=== PATIENT | male | born 1945 | race Caucasian/White ===

== ENCOUNTER → 2020-07-09 | Day surgery (SDC) | payer MEDICARE, OTHER ==
[~2020-07-09] VITALS: Ht 182.9 cm; Wt 145.1 kg
[~2020-07-09] MED LIST: ALLOPURINOL100 MG PO; AMOXICILLIN500 M1 PO; AMOXICILLIN500 MG PO; BENTYL10 MG PO; COMPAZINE10 MG PO; DEXAMETHASONE 2M2 MG PO; ELIQUIS2.5 MG PO; GLYBURIDE 5MG TA5 MG PO; HYDROCODON-ACE1 EAC4 PO; LEXAPRO 10MG TA10 MG PO; LISINOPRIL2.5 MG PO; LOPRESSOR25 MG PO; METRONIDAZOLE500 MG PO; NORCO 5-325 TA1 EACH PO; NORVASC 10MG TA10 MG PO; NORVASC10 MG PO; ONDANSETRON ODT4 MG PO; ONDANSETRON ODT8 MG PO; PEPCID AC10 MG PO; PERCOCET 5-3251 EACH PO; PRILOSEC20 MG PO; PROTONIX 40MG T40 MG PO; TOPROL XL 25MG25 MG PO; ZESTRIL2.5 MG PO; ZOFRAN4 M1 PO
[2020-07-09 09:05] LABS: HCT 44.7 % (42.0-52.0); HGB 14.9 g/dl (13.2-18.0); MCH 30.7 pg (25.0-31.0); MCHC 33.3 g/dL (32.0-36.0); MCV 92.2 fL (78.0-100.0); MPV 11.1 fL (6.0-9.5); RBC 4.85 M/uL (4.70-6.00); RDW 12.8 % (11.5-14.0); WBC 5.8 K/uL (4.0-10.5)
[2020-07-09 09:30] LABS: ALBUMIN 3.9 g/dL (3.4-5.0); BILIRUBIN - TOTAL 0.7 mg/dL (0.2-1.0); BUN/CREAT RATIO (CALC) 12.1 RATIO; CREATININE 1.41 mg/dL (0.67-1.17); GLOBULIN (CALCULATION) 3.3 g/dL; POTASSIUM 4.4 mmol/L (3.5-5.1); TOTAL PROTEIN 7.2 g/dL (6.4-8.2)
== END | disposition home or self-care (01) ==
LOC: FAS 08:29
PROVIDERS: Surgery
DX: I87.2 Venous insufficiency (chronic) (peripheral) (principal); I35.1 Nonrheumatic aortic (valve) insufficiency; C34.90 Malignant neoplasm of unspecified part of unspecified bronchus or lung; I10 Essential (primary) hypertension; I73.9 Peripheral vascular disease, unspecified; G47.30 Sleep apnea, unspecified; K21.9 Gastro-esophageal reflux disease without esophagitis; E11.9 Type 2 diabetes mellitus without complications; Z98.49 Cataract extraction status, unspecified eye; Z88.2 Allergy status to sulfonamides; Z86.010 Personal history of colon polyps; Z87.39 Personal history of other diseases of the musculoskeletal system and connective tissue; Z90.49 Acquired absence of other specified parts of digestive tract; Z98.890 Other specified postprocedural states; Z90.5 Acquired absence of kidney; Z20.822 Contact with and (suspected) exposure to COVID-19
CPT/HCPCS: 36415; 71045; 76000; 77001; 80053; 82962; C1788; J0690; J1644; J2405; J2704; J3010; J7120

== ENCOUNTER 2020-08-20 11:06 | Emergency (ER) | payer MEDICARE, OTHER ==
[~2020-08-20 11:06] MED LIST changes: -AMOXICILLIN500 M1 PO; -AMOXICILLIN500 MG PO; -BENTYL10 MG PO; -COMPAZINE10 MG PO; -DEXAMETHASONE 2M2 MG PO; -ELIQUIS2.5 MG PO; -LEXAPRO 10MG TA10 MG PO; -METRONIDAZOLE500 MG PO; -NORVASC10 MG PO; -ONDANSETRON ODT4 MG PO; -PEPCID AC10 MG PO; -PRILOSEC20 MG PO; -PROTONIX 40MG T40 MG PO; -ZESTRIL2.5 MG PO; -ZOFRAN4 M1 PO
[2020-08-20 11:56] LABS: BASOPHIL 0.7 % (0-2); EOSINOPHIL 0.3 % (0-7); HCT 36.9 % (42.0-52.0); HGB 12.6 g/dl (13.2-18.0); LYMPHOCYTE 30.2 % (15-48); MCH 32.1 pg (25.0-31.0); MCHC 34.1 g/dL (32.0-36.0); MCV 94.1 fL (78.0-100.0); NEUTROPHIL 60.1 % (41-80); NRBC 0; PLT 153 K/uL (150-400); RBC 3.92 M/uL (4.70-6.00); RDW 14.3 % (11.5-14.0)
[2020-08-20 12:13] LABS: INR 1.15 (0.9-1.2); PTT 28.7 SECONDS (22.2-34.7)
[2020-08-20 12:23] LABS: ALBUMIN 3.6 g/dL (3.4-5.0); BILIRUBIN - TOTAL 0.9 mg/dL (0.2-1.0); BUN/CREAT RATIO (CALC) 12.7 RATIO; CREATININE 1.5 mg/dL (0.67-1.17); GLOBULIN (CALCULATION) 2.5 g/dL; POTASSIUM 4.4 mmol/L (3.5-5.1); TOTAL PROTEIN 6.1 g/dL (6.4-8.2)
[2020-08-20 12:28] LABS: D-DIMER 13.52 ug/mLFEU (0.00-0.41)
[2020-08-20 12:35] LABS: PRO-BNP 149 pg/mL (<125)
[2020-08-20 12:48] LABS: LACTIC ACID 2.1 mmol/L (0.4-1.9)
[2020-10-30] MEDS ORDERED: LOPRESSOR25 MG PO (13:02)
[2020-10-30] MEDS ORDERED: PROTONIX 40MG T40 MG PO (13:03)
[2020-10-30] MEDS ORDERED: PEPCID AC10 MG PO (13:05)
[2020-10-30] MEDS ORDERED: PRILOSEC20 MG PO (13:06)
== END 2020-08-20 15:15 | disposition other institution (70) ==
LOC: FER 11:06
PROVIDERS: Emergency Medicine
DX: J96.01 Acute respiratory failure with hypoxia (principal); E11.22 Type 2 diabetes mellitus with diabetic chronic kidney disease; I12.9 Hypertensive chronic kidney disease with stage 1 through stage 4 chronic kidney disease, or unspecified chronic kidney disease; N18.30 Chronic kidney disease, stage 3 unspecified; I45.2 Bifascicular block; G47.33 Obstructive sleep apnea (adult) (pediatric); E66.9 Obesity, unspecified; Z99.89 Dependence on other enabling machines and devices; Z88.2 Allergy status to sulfonamides; Z91.041 Radiographic dye allergy status; Z79.899 Other long term (current) drug therapy; Z86.79 Personal history of other diseases of the circulatory system; Z87.19 Personal history of other diseases of the digestive system; Z20.822 Contact with and (suspected) exposure to COVID-19
CPT/HCPCS: 36415; 36600; 71045; 80053; 82803; 83605; 83880; 84484; 85025; 85379; 85610; 85730; 87040; 94640; 94664; 94762; J1650; U0002

== ENCOUNTER 2020-09-08 05:22 | Emergency (ER) | payer MEDICARE, OTHER ==
[2020-09-08 05:54] LABS: BASOPHIL 0.4 % (0-2); EOSINOPHIL 0.7 % (0-7); HCT 38.8 % (42.0-52.0); HGB 13.3 g/dl (13.2-18.0); LYMPHOCYTE 16.5 % (15-48); MCH 32.7 pg (25.0-31.0); MCHC 34.3 g/dL (32.0-36.0); MCV 95.3 fL (78.0-100.0); MPV 10.3 fL (6.0-9.5); NEUTROPHIL 76.2 % (41-80); NRBC 0; PLT 149 K/uL (150-400); RBC 4.07 M/uL (4.70-6.00); RDW 15.4 % (11.5-14.0); WBC 5.5 K/uL (4.0-10.5)
[2020-09-08 06:14] LABS: ALBUMIN 3.8 g/dL (3.4-5.0); BILIRUBIN - TOTAL 1.3 mg/dL (0.2-1.0); BUN/CREAT RATIO (CALC) 14.9 RATIO; CREATININE 1.34 mg/dL (0.67-1.17); GLOBULIN (CALCULATION) 2.5 g/dL; POTASSIUM 4.3 mmol/L (3.5-5.1); TOTAL PROTEIN 6.3 g/dL (6.4-8.2)
[2020-09-08 06:17] LABS: LACTIC ACID 1.5 mmol/L (0.4-1.9)
[2020-09-08 07:46] LABS: BILIRUBIN NEGATIVE (NEGATIVE); BLOOD NEGATIVE Ery/uL (NEGATIVE); CLARITY CLEAR (CLEAR); COLOR YELLOW (YELLOW); GLUCOSE (U) NORMAL (NORMAL); LEUKOCYTES NEGATIVE Leu/uL (NEGATIVE); NITRITE NEGATIVE (NEGATIVE); PROTEIN NEGATIVE (NEGATIVE); SPECIFIC GRAVITY 1.025 (1.001-1.030); UROBILINOGEN 0.2 mg/dL (0.2-1.0)
[2020-09-08] MEDS ORDERED: PROTONIX 40MG T40 MG PO (08:44)
[2020-09-08] MEDS ORDERED: METRONIDAZOLE500 MG PO (08:44)
[2020-09-08] MEDS ORDERED: AMOXICILLIN500 M1 PO (08:44)
[2020-09-08] MEDS ORDERED: ZOFRAN4 M1 PO (08:56)
[2020-09-09] MEDS ORDERED: ZESTRIL2.5 MG PO (11:35)
[2020-09-09] MEDS ORDERED: NORVASC10 MG PO (11:37)
[2020-09-09] MEDS ORDERED: NORCO 5-325 TA1 EACH PO (11:39)
[2020-09-09] MEDS ORDERED: LOPRESSOR25 MG PO (11:40)
[2020-09-09] MEDS ORDERED: ALLOPURINOL100 MG PO (11:41)
[2020-09-09] MEDS ORDERED: GLYBURIDE 5MG TA5 MG PO (11:42)
[2020-09-09] MEDS ORDERED: METRONIDAZOLE500 MG PO (11:43)
[2020-09-09] MEDS ORDERED: PROTONIX 40MG T40 MG PO (11:44)
[2020-09-09] MEDS ORDERED: AMOXICILLIN500 MG PO (11:44)
[2020-09-09] MEDS ORDERED: DEXAMETHASONE 2M2 MG PO (11:46)
[2020-09-09] MEDS ORDERED: COMPAZINE10 MG PO (11:47)
[2020-09-09] MEDS ORDERED: ONDANSETRON ODT8 MG PO (11:48)
[2020-10-30] MEDS ORDERED: LOPRESSOR25 MG PO (13:02)
[2020-10-30] MEDS ORDERED: PROTONIX 40MG T40 MG PO (13:03)
[2020-10-30] MEDS ORDERED: PEPCID AC10 MG PO (13:05)
[2020-10-30] MEDS ORDERED: PRILOSEC20 MG PO (13:06)
== END 2020-09-08 09:30 | disposition home or self-care (01) ==
LOC: FER 05:22
PROVIDERS: Emergency Medicine Emergency Medical Services
DX: A04.8 Other specified bacterial intestinal infections (principal); N28.1 Cyst of kidney, acquired; I45.10 Unspecified right bundle-branch block; I12.9 Hypertensive chronic kidney disease with stage 1 through stage 4 chronic kidney disease, or unspecified chronic kidney disease; E11.22 Type 2 diabetes mellitus with diabetic chronic kidney disease; N18.30 Chronic kidney disease, stage 3 unspecified; K21.9 Gastro-esophageal reflux disease without esophagitis; D50.9 Iron deficiency anemia, unspecified; Z90.49 Acquired absence of other specified parts of digestive tract; Z79.01 Long term (current) use of anticoagulants; Z88.2 Allergy status to sulfonamides; Z91.041 Radiographic dye allergy status; Z85.118 Personal history of other malignant neoplasm of bronchus and lung; Z92.21 Personal history of antineoplastic chemotherapy; Z92.3 Personal history of irradiation; Z86.711 Personal history of pulmonary embolism
CPT/HCPCS: 36415; 80053; 81003; 82150; 83605; 83690; 84145; 84484; 85025; 87339; 93005; J2270; J2405; J7040

== ENCOUNTER 2020-09-09 03:45 | Day surgery (SDCO) | payer MEDICARE, OTHER ==
[~2020-09-09 03:45] MED LIST changes: +AMOXICILLIN500 M1 PO; +METRONIDAZOLE500 MG PO; +PROTONIX 40MG T40 MG PO; +ZOFRAN4 M1 PO
[2020-09-09 04:32] LABS: BASOPHIL 0.5 % (0-2); HCT 37.8 % (42.0-52.0); HGB 12.8 g/dl (13.2-18.0); LYMPHOCYTE 15.4 % (15-48); MCH 32.4 pg (25.0-31.0); MCHC 33.9 g/dL (32.0-36.0); MCV 95.7 fL (78.0-100.0); MONOCYTE 4.1 % (0-12); MPV 10.3 fL (6.0-9.5); NEUTROPHIL 78.8 % (41-80); NRBC 0; PLT 124 K/uL (150-400); RBC 3.95 M/uL (4.70-6.00); RDW 15.2 % (11.5-14.0); WBC 4.2 K/uL (4.0-10.5)
[2020-09-09 04:46] LABS: ALBUMIN 3.6 g/dL (3.4-5.0); BILIRUBIN - TOTAL 1.1 mg/dL (0.2-1.0); BUN/CREAT RATIO (CALC) 14.9 RATIO; CREATININE 1.34 mg/dL (0.67-1.17); GLOBULIN (CALCULATION) 2.6 g/dL; POTASSIUM 4.2 mmol/L (3.5-5.1); TOTAL PROTEIN 6.2 g/dL (6.4-8.2)
[2020-09-09 08:43] LABS: CORONAVIRUS 2019 SARS-COV-2 NEGATIVE (NEGATIVE)
[2020-09-09 09:23] LABS: INFLUENZA A NAA NEGATIVE (NEGATIVE)
[2020-09-09] MEDS ORDERED: ZESTRIL2.5 MG PO (11:35)
[2020-09-09] MEDS ORDERED: NORVASC10 MG PO (11:37)
[2020-09-09] MEDS ORDERED: NORCO 5-325 TA1 EACH PO (11:39)
[2020-09-09] MEDS ORDERED: LOPRESSOR25 MG PO (11:40)
[2020-09-09] MEDS ORDERED: ALLOPURINOL100 MG PO (11:41)
[2020-09-09] MEDS ORDERED: GLYBURIDE 5MG TA5 MG PO (11:42)
[2020-09-09] MEDS ORDERED: METRONIDAZOLE500 MG PO (11:43)
[2020-09-09] MEDS ORDERED: PROTONIX 40MG T40 MG PO (11:44)
[2020-09-09] MEDS ORDERED: AMOXICILLIN500 MG PO (11:44)
[2020-09-09] MEDS ORDERED: DEXAMETHASONE 2M2 MG PO (11:46)
[2020-09-09] MEDS ORDERED: COMPAZINE10 MG PO (11:47)
[2020-09-09] MEDS ORDERED: ONDANSETRON ODT8 MG PO (11:48)
--- NOTE | 2020-09-09 14:04 | NUR ---
09/09/20 Mr. Cartwright reports to have been independent in the home and community prior to admission. His sister who was a support system has now past away. He reports to have a few supportive friends. - Mr. Cartwright was confused re: administration of medications. He reports to now understand how to take his medications. He was advised to use a medi-automatic data processing planner and to talk to the Pharmacist should he have additional questions.
[2020-10-30] MEDS ORDERED: LOPRESSOR25 MG PO (13:02)
[2020-10-30] MEDS ORDERED: PROTONIX 40MG T40 MG PO (13:03)
[2020-10-30] MEDS ORDERED: PEPCID AC10 MG PO (13:05)
[2020-10-30] MEDS ORDERED: PRILOSEC20 MG PO (13:06)
== END 2020-09-09 14:05 | disposition home or self-care (01) ==
LOC: FER 03:45 → FTCU 06:42
PROVIDERS: Emergency Medicine Emergency Medical Services; ADMIT Internal Medicine
DX: K27.9 Peptic ulcer, site unspecified, unspecified as acute or chronic, without hemorrhage or perforation (principal); B96.81 Helicobacter pylori [H. pylori] as the cause of diseases classified elsewhere; I12.9 Hypertensive chronic kidney disease with stage 1 through stage 4 chronic kidney disease, or unspecified chronic kidney disease; E11.22 Type 2 diabetes mellitus with diabetic chronic kidney disease; I26.99 Other pulmonary embolism without acute cor pulmonale; N18.30 Chronic kidney disease, stage 3 unspecified; R59.9 Enlarged lymph nodes, unspecified; Z85.528 Personal history of other malignant neoplasm of kidney; Z85.118 Personal history of other malignant neoplasm of bronchus and lung; Z20.822 Contact with and (suspected) exposure to COVID-19; Z79.84 Long term (current) use of oral hypoglycemic drugs; Z79.899 Other long term (current) drug therapy
CPT/HCPCS: 36415; 80053; 82150; 83605; 83690; 84145; 84484; 85025; C9113; G0378; J1170; J1980; J2060; J2405; J7030; Q0164; U0002

== ENCOUNTER 2020-09-22 16:45 | Emergency (ER) | payer MEDICARE, OTHER ==
[~2020-09-22 16:45] MED LIST changes: +AMOXICILLIN500 MG PO; +COMPAZINE10 MG PO; +DEXAMETHASONE 2M2 MG PO; +NORVASC10 MG PO; +ZESTRIL2.5 MG PO
[2020-09-22 19:26] LABS: BASOPHIL 0.8 % (0-2); EOSINOPHIL 0.4 % (0-7); HCT 34.3 % (42.0-52.0); HGB 11.6 g/dl (13.2-18.0); LYMPHOCYTE 34.3 % (15-48); MCHC 33.8 g/dL (32.0-36.0); MCV 97.7 fL (78.0-100.0); MONOCYTE 6.9 % (0-12); NEUTROPHIL 57.2 % (41-80); NRBC 0; PLT 92 K/uL (150-400); RBC 3.51 M/uL (4.70-6.00); RDW 14.7 % (11.5-14.0); WBC 2.5 K/uL (4.0-10.5)
[2020-09-22 19:37] LABS: BILIRUBIN NEGATIVE (NEGATIVE); BLOOD TRACE-INTACT Ery/uL (NEGATIVE); CLARITY CLEAR (CLEAR); COLOR YELLOW (YELLOW); GLUCOSE (U) NORMAL (NORMAL); LEUKOCYTES NEGATIVE Leu/uL (NEGATIVE); NITRITE NEGATIVE (NEGATIVE); PROTEIN TRACE (LOW) mg/dL (NEGATIVE); SPECIFIC GRAVITY 1.025 (1.001-1.030); UROBILINOGEN 0.2 mg/dL (0.2-1.0)
[2020-09-22 19:41] LABS: ALBUMIN 3.4 g/dL (3.4-5.0); BILIRUBIN - TOTAL 0.7 mg/dL (0.2-1.0); BUN/CREAT RATIO (CALC) 14.5 RATIO; CREATININE 1.24 mg/dL (0.67-1.17); GLOBULIN (CALCULATION) 2.7 g/dL; POTASSIUM 4.4 mmol/L (3.5-5.1); TOTAL PROTEIN 6.1 g/dL (6.4-8.2)
[2020-09-22 19:44] LABS: URINARY RBC RARE
[2020-09-22] MEDS ORDERED: ONDANSETRON ODT4 MG PO (23:01)
[2020-10-30] MEDS ORDERED: LOPRESSOR25 MG PO (13:02)
[2020-10-30] MEDS ORDERED: PROTONIX 40MG T40 MG PO (13:03)
[2020-10-30] MEDS ORDERED: PEPCID AC10 MG PO (13:05)
[2020-10-30] MEDS ORDERED: PRILOSEC20 MG PO (13:06)
== END 2020-09-22 23:08 | disposition home or self-care (01) ==
LOC: FER 16:45
PROVIDERS: Emergency Medicine
DX: K21.9 Gastro-esophageal reflux disease without esophagitis (principal); R10.9 Unspecified abdominal pain; R11.0 Nausea; R63.0 Anorexia; C64.9 Malignant neoplasm of unspecified kidney, except renal pelvis; C96.9 Malignant neoplasm of lymphoid, hematopoietic and related tissue, unspecified; Z88.2 Allergy status to sulfonamides; Z79.01 Long term (current) use of anticoagulants; Z79.899 Other long term (current) drug therapy; Z86.711 Personal history of pulmonary embolism
CPT/HCPCS: 36415; 74019; 80053; 81001; 82150; 83690; 85025; 87339; J1642; J2405; J7040

== ENCOUNTER 2020-09-28 21:01 | Emergency (ER) | payer MEDICARE, OTHER ==
[~2020-09-28 21:01] MED LIST changes: +ONDANSETRON ODT4 MG PO
[2020-09-28 23:40] LABS: BASOPHIL 0.3 % (0-2); EOSINOPHIL 0.3 % (0-7); HCT 36.3 % (42.0-52.0); HGB 12.3 g/dl (13.2-18.0); LYMPHOCYTE 21.8 % (15-48); MCH 33.3 pg (25.0-31.0); MCHC 33.9 g/dL (32.0-36.0); MCV 98.4 fL (78.0-100.0); MONOCYTE 3.4 % (0-12); MPV 10.5 fL (6.0-9.5); NEUTROPHIL 73.9 % (41-80); NRBC 0; RBC 3.69 M/uL (4.70-6.00); RDW 14.7 % (11.5-14.0); WBC 3.2 K/uL (4.0-10.5)
[2020-09-28 23:42] LABS: PLT 87 K/uL (150-400)
[2020-09-29 00:25] LABS: ALBUMIN 3.6 g/dL (3.4-5.0); BUN/CREAT RATIO (CALC) 13.3 RATIO; CREATININE 1.28 mg/dL (0.67-1.17); GLOBULIN (CALCULATION) 3.3 g/dL; POTASSIUM 6.4 mmol/L (3.5-5.1); TOTAL PROTEIN 6.9 g/dL (6.4-8.2)
[2020-09-29 01:02] LABS: BILIRUBIN NEGATIVE (NEGATIVE); BLOOD TRACE-INTACT Ery/uL (NEGATIVE); CLARITY CLEAR (CLEAR); COLOR YELLOW (YELLOW); GLUCOSE (U) NORMAL (NORMAL); LEUKOCYTES NEGATIVE Leu/uL (NEGATIVE); NITRITE NEGATIVE (NEGATIVE); PROTEIN TRACE (LOW) mg/dL (NEGATIVE); SPECIFIC GRAVITY >=1.030 (1.001-1.030); UROBILINOGEN 0.2 mg/dL (0.2-1.0); pH 5.5 (5.0-9.0)
[2020-09-29 01:13] LABS: URINARY RBC RARE; URINARY WBC RARE
[2020-09-29 04:48] LABS: BUN/CREAT RATIO (CALC) 13.1 RATIO; CREATININE 1.3 mg/dL (0.67-1.17)
[2020-09-29 04:49] LABS: POTASSIUM 4.6 mmol/L (3.5-5.1)
[2020-10-30] MEDS ORDERED: LOPRESSOR25 MG PO (13:02)
[2020-10-30] MEDS ORDERED: PROTONIX 40MG T40 MG PO (13:03)
[2020-10-30] MEDS ORDERED: PEPCID AC10 MG PO (13:05)
[2020-10-30] MEDS ORDERED: PRILOSEC20 MG PO (13:06)
== END 2020-09-29 05:20 | disposition home or self-care (01) ==
LOC: FER 21:01
PROVIDERS: Emergency Medicine
DX: R10.13 Epigastric pain (principal); I10 Essential (primary) hypertension; Z79.01 Long term (current) use of anticoagulants; Z86.711 Personal history of pulmonary embolism; Z88.2 Allergy status to sulfonamides
CPT/HCPCS: 36415; 80048; 80053; 81001; 83690; 85025; J1642; J2270; J2405

== ENCOUNTER 2020-10-08 08:24 | Day surgery (SDCO) | payer MEDICARE, OTHER ==
[2020-10-08 09:58] LABS: BASOPHIL 0 % (0-2); EOSINOPHIL 1.1 % (0-7); HCT 32.2 % (42.0-52.0); HGB 11.3 g/dl (13.2-18.0); LYMPHOCYTE 71.3 % (15-48); MCH 33.9 pg (25.0-31.0); MCHC 35.1 g/dL (32.0-36.0); MCV 96.7 fL (78.0-100.0); MONOCYTE 11.7 % (0-12); MPV 10.3 fL (6.0-9.5); NEUTROPHIL 15.9 % (41-80); NRBC 0; PLT 114 K/uL (150-400); RBC 3.33 M/uL (4.70-6.00)
[2020-10-08 09:59] LABS: WBC 0.9 K/uL (4.0-10.5)
[2020-10-08 10:05] LABS: INR 1.17 (0.9-1.2); PROTHROMBIN TIME 14.1 SECONDS (11.4-13.6); PTT 28.5 SECONDS (22.2-34.7)
[2020-10-08 10:09] LABS: ALBUMIN 3.7 g/dL (3.4-5.0); BILIRUBIN - TOTAL 1.4 mg/dL (0.2-1.0); BUN/CREAT RATIO (CALC) 13.5 RATIO; CREATININE 1.33 mg/dL (0.67-1.17); GLOBULIN (CALCULATION) 2.5 g/dL; POTASSIUM 4.7 mmol/L (3.5-5.1); TOTAL PROTEIN 6.2 g/dL (6.4-8.2)
[2020-10-08 10:18] LABS: LACTIC ACID 1.9 mmol/L (0.4-1.9)
[2020-10-08 10:36] LABS: BILIRUBIN 1+ mg/dL (NEGATIVE); BLOOD NEGATIVE Ery/uL (NEGATIVE); CLARITY HAZY (CLEAR); COLOR YELLOW (YELLOW); GLUCOSE (U) NORMAL (NORMAL); LEUKOCYTES NEGATIVE Leu/uL (NEGATIVE); NITRITE NEGATIVE (NEGATIVE); PROTEIN TRACE (LOW) mg/dL (NEGATIVE); SPECIFIC GRAVITY 1.015 (1.001-1.030); pH 7.5 (5.0-9.0)
[2020-10-08 10:55] LABS: BACTERIA TRACE; SQUAMOUS EPITHELIAL CELLS RARE; URINARY WBC RARE
[2020-10-08] MEDS ORDERED: BENTYL10 MG PO (12:14)
[2020-10-08] MEDS ORDERED: LEXAPRO 10MG TA10 MG PO (12:14)
[2020-10-08] MEDS ORDERED: ELIQUIS2.5 MG PO (12:15)
[2020-10-09 06:24] LABS: BASOPHIL 0.9 % (0-2); EOSINOPHIL 0.9 % (0-7); HCT 29.9 % (42.0-52.0); HGB 10.2 g/dl (13.2-18.0); LYMPHOCYTE 69.2 % (15-48); MCH 33.8 pg (25.0-31.0); MCHC 34.1 g/dL (32.0-36.0); MONOCYTE 12.1 % (0-12); MPV 10.9 fL (6.0-9.5); NRBC 0; RBC 3.02 M/uL (4.70-6.00); RDW 14.2 % (11.5-14.0)
[2020-10-09 06:28] LABS: PLT 103 K/uL (150-400); WBC 1.1 K/uL (4.0-10.5)
[2020-10-09 06:40] LABS: BUN/CREAT RATIO (CALC) 12.4 RATIO; CREATININE 1.29 mg/dL (0.67-1.17); POTASSIUM 4.7 mmol/L (3.5-5.1)
[2020-10-10 12:10] LABS: PTH, INTACT 77 pg/mL (15-65)
[2020-10-30] MEDS ORDERED: LOPRESSOR25 MG PO (13:02)
[2020-10-30] MEDS ORDERED: PROTONIX 40MG T40 MG PO (13:03)
[2020-10-30] MEDS ORDERED: PEPCID AC10 MG PO (13:05)
[2020-10-30] MEDS ORDERED: PRILOSEC20 MG PO (13:06)
== END 2020-10-09 12:00 | disposition home or self-care (01) ==
LOC: FER 08:24 → FMS 10:53
PROVIDERS: Emergency Medicine; ADMIT Internal Medicine
DX: D70.9 Neutropenia, unspecified (principal); R53.83 Other fatigue; K30 Functional dyspepsia; R63.0 Anorexia; I12.9 Hypertensive chronic kidney disease with stage 1 through stage 4 chronic kidney disease, or unspecified chronic kidney disease; E11.22 Type 2 diabetes mellitus with diabetic chronic kidney disease; N18.30 Chronic kidney disease, stage 3 unspecified; E86.0 Dehydration; E83.52 Hypercalcemia; M10.9 Gout, unspecified; C78.02 Secondary malignant neoplasm of left lung; C78.01 Secondary malignant neoplasm of right lung; C80.1 Malignant (primary) neoplasm, unspecified; G47.33 Obstructive sleep apnea (adult) (pediatric); K21.9 Gastro-esophageal reflux disease without esophagitis; E66.9 Obesity, unspecified; Z68.39 Body mass index [BMI] 39.0-39.9, adult; Z88.2 Allergy status to sulfonamides; Z91.041 Radiographic dye allergy status; Z79.01 Long term (current) use of anticoagulants; Z79.899 Other long term (current) drug therapy; Z20.822 Contact with and (suspected) exposure to COVID-19
CPT/HCPCS: 36415; 71045; 80048; 80053; 81001; 82310; 83605; 83970; 84484; 85025; 85610; 85730; 87040; 93005; G0378; J7030; U0002